=== PATIENT | female | born 1975 | race Caucasian/White ===

== ENCOUNTER 2016-08-28 05:37 | Day surgery (SDC) | payer OTHER ==
[2016-08-28] VITALS (11 sets, daily range): BP systolic 102–124; BP diastolic 60–78; PULSE 75–86; RESP 16–20; Ht 165.1 cm; Wt 59.0 kg
[~2016-08-28] VITALS: Ht 165.1 cm; Wt 59.0 kg
[~2016-08-28 05:37] MED LIST: PREN-39
[2016-08-28] MEDS ORDERED: METF500T4 PO (07:22)
[2016-08-28] MEDS ORDERED: FER325 PO (07:22)
[2016-08-28] MEDS ORDERED: MEPERIDINE 25 MG INJ IV PRN (09:00)
[2016-08-28] MEDS ORDERED: FENTAnyl 50 MCG/ML VIAL IV PRN ×2 (09:00)
[2016-08-28] MEDS ORDERED: ONDANSETRON 4 MG INJ IV PRN (09:00)
[2016-08-28] MEDS ORDERED: HYDROmorphONE (0.2 MG/ML) 10ML SYG IV PRN ×3 (09:00)
[2016-08-28] MEDS ORDERED: DIPHENHYDRAMINE 50 MG INJ IV PRN (09:00)
[2016-08-28] MEDS ORDERED: MIDAZOLAM 1 MG/ML 2 ML INJ ONE (10:18)
[2016-08-28] MEDS ORDERED: LIDOCAINE 2% (SDV) 5 ML INJ ONE (10:18)
[2016-08-28] MEDS ORDERED: ONDANSETRON 4 MG INJ ONE (10:18)
[2016-08-28] MEDS ORDERED: PROPOFOL 20 ML ONE (10:18)
[2016-08-28] MEDS ORDERED: FENTAnyl 50 MCG/ML VIAL ONE (10:18)
[2016-08-28] MEDS ORDERED: DEXAMETHASONE 4 MG/ML 1 ML INJ ONE (10:18)
--- NOTE | 2016-08-28 10:19 | PREOPHP ---
DATE OF ADMISSION: 08/28/2016 HISTORY OF PRESENT ILLNESS:. This is a 41-year-old lady, 3, para 0 with 3 spontaneous abort ions. Her last normal menstrual period was a few days prior to admission. She was admitted for D a nd C, hysteroscopy, possible suction curettage. This patient bleeds very heavy with her periods ass ociated with blood clots for the last many months and getting worse up to the time of admission. Sh surendra had an ultrasound done and the ultrasound revealed submucous fibroid with subserosal fibroid as we ll. So she was admitted for D and C, hysteroscopy, possible suction curettage. The procedures were explained to the patient and she understood everything totally. The risks, benefits, alternatives were discussed with her as well. PAST PERSONAL HISTORY: No history of TB, asthma. No allergies. The patient is diabetic. FAMILY HISTORY: Mother has diabetes as well. REVIEW OF SYSTEMS: CARDIOVASCULAR: No chest pains. RESPIRATORY: No cough. GASTROINTESTINAL: No diarrhea, no vomiting. GENITOURINARY: No dysuria. PHYSICAL EXAMINATION: GENERAL: Reveals a conscious coherent lady in no acute distress. VITAL SIGNS: Her blood pressure 120/80, pulse rate 80 per minute, respirations 16 per minute. BREASTS: Within normal limits. HEART: Within normal limits. LUNGS: Within normal limits. ABDOMEN: Soft. No organomegaly. PELVIC: Revealed the cervix to be firm, uterus about 8 weeks size, and adnexa were negative for mas ses. RECTAL: Confirmed the pelvic findings. EXTREMITIES: No pedal edema. ADMITTING DIAGNOSES: 1. Menorrhagia. 2. Submucous fibroid. 3. Subserosal fibroid. 4. Anemia. PLAN: The patient is planned to have the above procedures. Dictated By: CYNDI ALMEIDA/VITO Conf#: [id number] DID#: [id number]
[2016-08-28] MEDS ORDERED: ACETAMINOPHEN 1000MG/100ML IV 100 ML ONE (10:33)
[2016-08-28] MEDS ORDERED: ACETAMINOPHEN 325 MG TAB PO PRN (11:30)
--- NOTE | 2016-08-29 03:21 | OPR ---
DATE OF OPERATION: 08/28/2016 PREOPERATIVE DIAGNOSES: 1. Submucous fibroid and endometrial thickening 2. Menorrhagia. POSTOPERATIVE DIAGNOSES: 1. Submucous fibroid and endometrial thickening 2. Menorrhagia. 3. Pending pathology report. SURGEON: Serena Camacho MD ANESTHESIA: General. OPERATION PERFORMED: Hysteroscopy, fractional dilatation and curettage, and suction curettage. OPERATIVE TECHNIQUE: Under general anesthesia, the patient was prepped and draped in the usual [facility] ion for vaginal surgery. Pelvic exam under anesthesia revealed the cervix to be firm, uterus about 6 weeks size, and adnexa were negative for masses. Then, the heavy weight vaginal retractor was put in place and the anterior lip of the cervix was grasped with an Allis clamp. Endocervical dilatati on up to Hegar 6 was proceeded. Uterus was sounded to about 2.5 inches. Then the hysteroscope was inserted inside the uterine cavity. There was a submucosal fibroid noted on the anterior fundal por tion of the uterus. Then endocervical curettage was performed, and small amount of tissue was obtai immanuel. Endometrial curettage was performed, and a good amount of tissue was obtained. First endocerv ical followed by endometrial curettage was done. A good amount of tissue was obtained. Then the mckenna ction tip size 6 was inserted inside the uterine cavity and suction curettage was done. A good amou nt of tissue was obtained. The uterus was intact during and after the procedure. The patient estelle ated the procedure well. Estimated blood loss was minimal. Vital signs were stable during and afte r the procedure. Dictated By: SERENA CAMACHO MD NS/NTS Conf#: [id number] DID#: [id number]
== END 2016-08-28 12:20 | disposition home or self-care (01) ==
LOC: SDS 05:37
PROVIDERS: ATTEND Obstetrics & Gynecology
DX: N92.1 Excessive and frequent menstruation with irregular cycle (principal); D25.0 Submucous leiomyoma of uterus; E11.9 Type 2 diabetes mellitus without complications; D64.9 Anemia, unspecified
CPT/HCPCS: 58558; 84702; 84703; 86850; 86900; 86901; 88305; J0131; J2250; J3010; J1100; J2405